=== PATIENT | female | born 1955 | race Caucasian/White ===

== ENCOUNTER → 2019-09-29 | Outpatient (CLI) | payer BC | LOC: COL.RAD 09:14 | DX: N18.3 Chronic kidney disease, stage 3 (moderate) (principal); N27.1 Small kidney, bilateral; N28.1 Cyst of kidney, acquired ==

== ENCOUNTER 2019-10-06 03:31 | Emergency (ER) | payer BC ==
[~2019-10-06] VITALS: Ht 160 cm; Wt 49.5 kg
[2019-10-06 03:39] VITALS: TEMP 98
[2019-10-06] MEDS ORDERED: PRINIVIL10 MG PO (03:57)
[2019-10-06 04:10] LABS: COLLECTION METHOD CLEAN CATCH
[2019-10-06 04:15] LABS: BASO # 0.1 (0.0-0.2); BASO % 0.7 % (0.0-2.0); EOS # 0.5 (0.0-0.7); EOS % 2.9 % (0-4.0); GRAN # 12.1 (1.4-6.5); GRAN % 75.1 % (42.2-75.2); LYMPH # 2.2 (1.2-3.4); LYMPH % 13.9 % (20.0-51.0); MEAN CELL VOLUME 96 fl (80.0-100.0); MEAN CORPUSCULAR HEMOGLOBIN 30 pg (27.0-31.0); MEAN CORPUSCULAR HGB CONC 32 g/dl (33.0-37.0); MEAN PLATELET VOLUME 9.5 fl (7.4-10.4); MONO # 1.1 (0.1-0.6); PLATELET COUNT 350 K/mm3 (130-400); RED BLOOD COUNT 3.96 M/mm3 (4.10-5.30); REDCELL DISTRIBUTION WIDTH-CV 13.3 % (11.5-14.5)
[2019-10-06 04:19] LABS: PH 5 (5-8); URINE APPEARANCE Hazy; URINE BACTERIA Rare /hpf; URINE BILIRUBIN Negative (NEGATIVE); URINE BLOOD 2+ (NEGATIVE); URINE COLOR Yellow; URINE GLUCOSE Negative (NEGATIVE); URINE KETONE Negative (NEGATIVE); URINE LEUKOCYTE ESTERASE 1+ (NEGATIVE); URINE NITRATE Negative (NEGATIVE); URINE PROTEIN(semi-quant) Negative (NEGATIVE); URINE UROBILINOGEN Negative (NEGATIVE)
[2019-10-06 04:23] LABS: ALBUMIN 4.2 gm/dL (3.5-5.0); BILIRUBIN,TOTAL 0.2 mg/dL (0.0-1.0); CALCIUM 9.8 mg/dL (8.4-10.2); CREATININE, serum 1.81 (0.52-1.25); POTASSIUM 4.3 mmol/L (3.4-5.0); TOTAL PROTEIN 7.6 gm/dL (6.4-8.2)
[2019-10-06] MEDS ORDERED: ZOFRAN ODT4 MG SL (05:25)
[2019-10-06] MEDS ORDERED: NORCO 325 MG-51 TAB PO (05:25)
[2019-10-06 05:33] VITALS: BP 159/95; PULSE 86
== END 2019-10-06 05:33 | disposition home or self-care (01) ==
LOC: COL.ER 03:31
PROVIDERS: Emergency Medicine
DX: N20.2 Calculus of kidney with calculus of ureter (principal); I12.9 Hypertensive chronic kidney disease with stage 1 through stage 4 chronic kidney disease, or unspecified chronic kidney disease; N18.9 Chronic kidney disease, unspecified; E78.5 Hyperlipidemia, unspecified; N39.0 Urinary tract infection, site not specified; F17.210 Nicotine dependence, cigarettes, uncomplicated; Z98.890 Other specified postprocedural states
CPT/HCPCS: A4216; J0696; J2405; J3010; J7030

== ENCOUNTER 2019-10-09 08:55 | Day surgery (SDC) | payer BC ==
[~2019-10-09] VITALS: Ht 160 cm; Wt 50.7 kg
[~2019-10-09 08:55] MED LIST: NORCO 325 MG-51 TAB PO; PRINIVIL10 MG PO; ZOFRAN ODT4 MG SL
[2019-10-09 09:47] VITALS: BP 149/68; PULSE 93; TEMP 98.9
[2019-10-09] MEDS ORDERED: NORCO 325 MG-51 TAB PO (09:55)
[2019-10-09] MEDS ORDERED: ZOFRAN 4MG T4 MG/TAB PO (09:56)
[2019-10-09] MEDS ORDERED: LEVSIN0.125 M1 PO (09:57)
--- NOTE | 2019-10-09 09:58 | NUR ---
TO RM 7 AT 0911- DR DUPONT INTO TALK WITH PATIENT
[2019-10-09 11:35] VITALS: BP 124/47; PULSE 80; TEMP 98.2
--- NOTE | 2019-10-09 11:35 | NUR ---
TO RM 7 PER CART FROM PACU. ALERT ORIENTED X3, TALKING TO STAFF. DENIES PAIN OR DISCOMFORT. VOIDED IN PACU AND ASKING TO GO TO BATHROOM AGAIN. RECEIVED WATER.
[2019-10-09] MEDS ORDERED: PYRIDIUM 100MG100 MG PO (11:49)
[2019-10-09 11:50] VITALS: BP 103/68; PULSE 91
--- NOTE | 2019-10-09 11:50 | NUR ---
VOIDED AND RETURNED TO RM. RECEIVED MUFFIN
[2019-10-09 12:05] VITALS: BP 141/65; PULSE 85
--- NOTE | 2019-10-09 12:05 | NUR ---
ATE 100% AND TOLERATED WELL.
--- NOTE | 2019-10-09 12:10 | NUR ---
ATTEMPTING TO CALL RIDE AMBULATED TO BATHROOM AND STATED SHE HAS HAD DIARRHEA.
--- NOTE | 2019-10-09 12:15 | NUR ---
RECEIVED DISCHARGE INSTRUCTIONS AND VERBALIZED UNDERSTANDING. DISCONTINUED IV AND INT- CATHETER INTACT PATIENT GETTING DRESSED. SON ARRANGED FOR UBER TO PAICK UP PATIENT
--- NOTE | 2019-10-09 13:18 | NUR ---
PRESCRIPTION CALLED TO FILIBERT[facility] GAMIN[facility] TO [facility]. DISCHARGED PER WC BY NURSING STAFF TO PRIVATE CAR(UBER)
== END 2019-10-09 13:30 | disposition home or self-care (01) ==
LOC: SDCO 08:55
DX: N20.1 Calculus of ureter (principal); I12.9 Hypertensive chronic kidney disease with stage 1 through stage 4 chronic kidney disease, or unspecified chronic kidney disease; N18.9 Chronic kidney disease, unspecified; Z87.440 Personal history of urinary (tract) infections; M81.0 Age-related osteoporosis without current pathological fracture; B02.29 Other postherpetic nervous system involvement; F17.210 Nicotine dependence, cigarettes, uncomplicated; E78.00 Pure hypercholesterolemia, unspecified; Z79.899 Other long term (current) drug therapy
CPT/HCPCS: C1769; J0690; J2704; J3010; J7120; Q9967

== ENCOUNTER → 2020-02-09 | Outpatient (CLI) | payer BC ==
[~2020-02-09] MED LIST changes: +LEVSIN0.125 M1 PO; +PYRIDIUM 100MG100 MG PO; +ZOFRAN 4MG T4 MG/TAB PO
== END ==
LOC: COL.PUL 11-18 08:00
DX: N18.3 Chronic kidney disease, stage 3 (moderate) (principal)